=== PATIENT | male | born 1980 | race Caucasian/White ===

== ENCOUNTER → 2017-10-27 09:02 | Outpatient (CLI) | payer OTHER, SELFPAY ==
[2017-10-29 15:27] LABS: Fecal Immunochemical Test NOT DETECTED
== END ==
PROVIDERS: PCP Family Medicine; Visit Provider Family Medicine
DX: Z12.9 Encounter for screening for malignant neoplasm, site unspecified (principal)
CPT/HCPCS: 82274

== ENCOUNTER 2019-04-13 12:15 | Emergency (ER) | payer OTHER, SELFPAY ==
[2019-04-13 12:38] VITALS: BP 143/76; PULSE 73; RESP 15; TEMP 35.9; O2SAT 100; BMI 30.1
--- NOTE | 2019-04-13 13:05 | ED.BACK ---
HPI - Back Pain/Injury <LAURIE Murillo - Last Filed: 04/13/19 22:12> General Chief Complaint: Back Pain/Injury Stated Complaint: back pain going down his legs Time Seen by Provider: 04/13/19 12:49 Source: patient Limitations: no limitations History of Present Illness HPI Narrative: 38yo male presents to the emergency department complaining of right-sided back pain that radiates down to his knee. He states this initially started in January after coughing from a URI, he also reports twisting his ankle and falling forward during the same timeframe. He did not experience any immediate back pain but states the pain gradually developed and has increased over the past few weeks and is radiating past his knee. Patient states pain is worse when he raises his right leg, changes from the sitting to standing or standing to sitting position. Patient states he has been taking a muscle relaxer, naproxen, and had his 1st physical therapy appointment 3 days ago. Patient denies any history of back surgeries or injuries but states I have always struggled with low back pain. He denies any chest pain, shortness of breath, limb weakness, numbness or tingling, loss of bowel or bladder control, urinary retention, saddle paresthesias, abdominal pain, dysuria, blood in his urine, vomiting, diarrhea, or other concerns. Patient does report some nausea but states ?my family has had the stomach bug 24 hours ago. Related Data Previous Rx's Medication Instructions Recorded metaxalone 800 mg tablet 800 mg PO TID PRN #90 tab 03/17/19 naproxen 500 mg tablet 500 mg PO BID #60 tab 03/17/19 oxycodone 5 mg tablet 5 mg PO Q8H PRN #10 tab 04/13/19 prednisone 40 mg PO DAILY 5 Days #10 tab 04/13/19 Allergies Allergy/AdvReac Type Severity Reaction Status Date / Time No Known Drug Allergies Allergy Verified 04/13/19 15:23 Review of Systems <LAURIE Murillo - Last Filed: 04/13/19 22:12> Review of Systems Narrative: REVIEW OF SYSTEMS: GENERAL: Denies fever or chills. HENT: No head trauma. EYES: No double vision or vision loss. CARDIOVASCULAR: No chest pain or syncope. RESPIRATORY: No shortness of breath or cough. GASTROINTESTINAL: No nausea, vomiting, diarrhea, or constipation. GENITOURINARY: No flank pain no loss of bowel or bladder control. MUSCULOSKELETAL: Complains of right-sided back pain that radiates down right pain, see HPI. INTEGUMENTARY: No rash, lesions, or pruritus. NEURO: No numbness, tingling. No saddle paresthesias PSYCH: No behavior or mood changes. Patient History <LAURIE Murillo - Last Filed: 04/13/19 22:12> Medical History Lumbago with sciatica, right side (Acute) Family History Father Age: 69 Sleep apnea Adult idiopathic generalized osteoporosis Grandmother Asthma Mother Age: 66 Diabetes mellitus Hypertension Social History Smoking Status: Former smoker Smoking Status: Unknown if ever smoked alcohol intake frequency: holidays/special occasions only Substance Use Type: marijuana Exam <LAURIE Murillo - Last Filed: 04/13/19 22:12> Initial Vital Signs Initial Vital Signs: Vital Signs Temperature 96.7 F L 04/13/19 12:38 Pulse Rate 73 04/13/19 12:38 Respiratory Rate 15 04/13/19 12:38 Blood Pressure 143/76 H 04/13/19 12:38 Pulse Oximetry 100 04/13/19 12:38 PHYSICAL EXAMINATION: GENERAL: Well groomed, alert, and cooperative. Answers questions promptly and appropriately. Vital signs noted. HENT: Normocephalic, atraumatic. EYES: Symmetrical, sclera white, no periorbital swelling. CARDIOVASCULAR: S1 and S2 sounds normal. Regular rate and rhythm, no murmurs, clicks, or bruits. RESPIRATORY: Normal respiratory rate, trachea midline, airway patent. No stridor, nasal flaring or accessory muscle use. Lungs are clear in all jaime. MUSCULOSKELETAL: Tenderness to palpation of right side headache area, some tenderness to paraspinal vertebral muscles (particularly on the right) of lower lumbar spine. Positive straight leg test. Patient walks with a stiff gait due to pain. Equal integration consultant strength, deltoid, and forearm strength bilaterally. Equal quadriceps strength bilaterally. Equal tone and mass bilaterally. No spinal tenderness or deformities. EXTREMITIES: CMS intact. SKIN: Warm, dry, soft, appropriate color for ethnicity. No lesions, rashes, or wounds. NEURO: Alert and Oriented X 3. No sensory deficits. PSYCH: Appropriate affect and mood. <Doyle Burrell MD - Last Filed: 04/14/19 07:43> Initial Vital Signs Initial Vital Signs: Vital Signs Temperature 96.7 F L 04/13/19 12:38 Pulse Rate 73 04/13/19 12:38 Respiratory Rate 15 04/13/19 12:38 Blood Pressure 143/76 H 04/13/19 12:38 Pulse Oximetry 100 04/13/19 12:38 Course <LAURIE Murillo - Last Filed: 04/13/19 22:12> Course Course Narrative: Patient was given a Toradol injection to help with pain, reports decreased pain after administration. Patient was also given ondansetron as he states he feels slightly nauseated but his family has had the stomach bug. Orders Ordered: Discontinued Medications Ketorolac Tromethamine (Toradol) 30 mg IM NOW ONE Stop: 04/13/19 13:05 Last Admin: 04/13/19 13:44 Dose: 30 mg Documented by: GERI Ondansetron HCl (Zofran Odt) 4 mg SL NOW ONE Stop: 04/13/19 13:05 Last Admin: 04/13/19 13:45 Dose: 4 mg Documented by: BTONER Vital Signs Vital signs: Vital Signs - 8 hr 04/13/19 12:38 Temperature 96.7 F L Pulse Rate 73 Respiratory Rate 15 Blood Pressure 143/76 H Pulse Oximetry 100 <Doyle Burrell MD - Last Filed: 04/14/19 07:43> Orders Ordered: Discontinued Medications Ketorolac Tromethamine (Toradol) 30 mg IM NOW ONE Stop: 04/13/19 13:05 Last Admin: 04/13/19 13:44 Dose: 30 mg Documented by: GERI Ondansetron HCl (Zofran Odt) 4 mg SL NOW ONE Stop: 04/13/19 13:05 Last Admin: 04/13/19 13:45 Dose: 4 mg Documented by: BTONER Vital Signs Vital signs: Vital Signs - 8 hr 04/13/19 12:38 Temperature 96.7 F L Pulse Rate 73 Respiratory Rate 15 Blood Pressure 143/76 H Pulse Oximetry 100 [facility] - Back Pain/Injury <LAURIE Murillo - Last Filed: 04/13/19 22:12> Medical Records Attestation: I reviewed the patient's medical records. Lab Data Attestation: I reviewed the patient's lab results. [facility] Narrative Medical decision making narrative: History and examination most likely sciatica due to location of pain, description of pain, positive straight leg test, and lack of neurological symptoms. Patient was given Toradol in the emergency department which helped relieve symptoms. He was given a taper prednisone to help decrease symptoms as well. We discussed how pain often increases physical therapy before decreases. Less concern for cauda equina due to lack of concerning symptoms such as saddle paresthesias, limb weakness, or loss of bowel or bladder control. Patient agreed to plan of care verbalized understanding. Discharge Plan Departure Patient Disposition: Home Clinical Impression: Sciatica Qualifiers: Laterality: right Qualified Code(s): M54.31 - Sciatica, right side Discharge Date/Time: 04/13/19 14:01 Instructions: DI for Sciatica Activity Restrictions/Additional Instructions: Thank you for entrusting me with your care today. As discussed, I suspect your pain is most likely caused by sciatica. The pain can be exacerbated by physical therapy before it gets better. I have given you a regimen of steroids to help decrease the inflammation and pain, this prescription was sent to [facility] in [place]. Please follow up with your primary care provider as scheduled. Return emergency department for any limb weakness, loss of bowel or bladder control, severe headaches, abdominal pain, high fevers, or any new or concerning symptoms. Prescriptions: New prednisone 20 mg tablet 40 mg PO DAILY 5 Days Qty: 10 RF: 0 No Action metaxalone [Skelaxin] 800 mg tablet 800 mg PO TID PRN (Reason: muscle pain) Qty: 90 RF: 0 naproxen 500 mg tablet 500 mg PO BID Qty: 60 RF: 0 oxycodone 5 mg tablet 5 mg PO Q8H PRN (Reason: pain) Qty: 10 RF: 0 Referrals: Kizzy Fraser, [Primary Care Provider] -
[2019-04-13] MEDS: KETOROLAC 60 MG/2 ML VIAL 30 MG IM (13:44)
[2019-04-13] MEDS: ONDANSETRON 4 MG ODT SL (13:45)
[2019-04-13 13:53] VITALS: BP 137/82; PULSE 70; RESP 20; O2SAT 100
== END 2019-04-13 14:01 | disposition home or self-care (01) ==
PROVIDERS: Emergency Provider Nurse Practitioner; Family Provider Family Medicine; PCP Family Medicine
DX: M54.31 Sciatica, right side (principal)
CPT/HCPCS: 96372; 99283; J1885

== ENCOUNTER → 2019-05-17 12:45 | Outpatient (CLI) | payer OTHER, SELFPAY ==
--- NOTE | 2019-05-17 12:47 | DI.MRI.S_ITS ---
PROCEDURE: MR LUMBAR SPINE WO CON INDICATIONS: right sciatica TECHNIQUE: Noncontrast sagittal T1 spin echo and T2 fast echo, sagittal STIR, axial T1 and T2 fast spin echo through the lumbar spine. In cases with scoliosis, additional coronal T2 fast spin echo may be performed. COMPARISON: [facility], , L-SPINE 2-3 VIEWS, 03/24/2017, 9:49. FINDINGS: Image quality: Excellent. Alignment and Curvature: 5 lumbar type vertebral bodies are present by plain film. There is normal bony alignment. Bone Marrow: Marrow is of normal overall signal. No acute vertebral body compression fractures. Minimal reactive signal within the endplates adjacent to the L4 L5 and L5-S1 intervertebral discs. Spinal Cord: Conus medullaris terminates at the lower L1 level. Visualized cord demonstrates normal signal and size. Paraspinous Soft Tissues: No paravertebral masses. L1-L2: Normal appearance. L2-L3: Mild facet and ligament flavum hypertrophy. Mild epidural lipomatosis. Mild canal stenosis. Mild bilateral foraminal stenosis. L3-L4: Mild facet and ligament flavum hypertrophy. Mild epidural lipomatosis. Mild canal stenosis. Mild bilateral foraminal stenosis. L4-L5: Moderate disc desiccation. Mild diffuse disc bulge with superimposed small broad-based central protrusion. Mild facet and ligament flavum hypertrophy. Mild canal stenosis. Mild bilateral foraminal stenosis. L5-S1: Moderate disc height loss and desiccation. Mild diffuse disc bulge with superimposed right paracentral disc protrusion. Mild bilateral facet hypertrophy. Mild canal stenosis. Moderate subarticular foraminal stenosis bilaterally. Compression and posterior deviation of the right S1 nerve root within the lateral recess. IMPRESSION: 1. Multilevel degenerative disc and facet disease, as well as ligamentum flavum hypertrophy and epidural lipomatosis. 2. Mild multilevel canal stenoses. Multilevel foraminal stenoses, worst at L5-S1 bilaterally where there are moderate foraminal stenoses present. 3. Compression and posterior deviation of the right S1 nerve root at the L5-S1 disc space level. Recommend correlation with clinical symptoms to ascertain relevance of this finding. Dictated by: Gadiel Aleman M.D. on 05/17/2019 at 13:32 Approved by: Gadiel Aleman M.D. on 05/17/2019 at 13:35
== END ==
PROVIDERS: Family Provider Family Medicine; PCP Internal Medicine; Referring Provider Internal Medicine; Visit Provider Internal Medicine
DX: M51.16 Intervertebral disc disorders with radiculopathy, lumbar region (principal); M51.17 Intervertebral disc disorders with radiculopathy, lumbosacral region; M48.061 Spinal stenosis, lumbar region without neurogenic claudication; M48.07 Spinal stenosis, lumbosacral region; E88.2 Lipomatosis, not elsewhere classified; G89.29 Other chronic pain
CPT/HCPCS: 72148

== ENCOUNTER → 2019-12-27 07:26 | Outpatient (CLI) | payer OTHER, SELFPAY ==
[2019-12-27 08:13] LABS: Alanine Aminotransferase 40 IU/L (<50); Albumin 4.2 g/dL (3.5-5.0); Albumin Globulin Ratio 1.7 (1.0-2.8); Alkaline Phosphatase 119 U/L (38-126); Aspartate Aminotransferase 35 IU/L (17-59); BUN Creatinine Ratio 18.7 (6-22); Bilirubin Total 0.9 mg/dL (0.2-1.3); Blood Urea Nitrogen 20 mg/dL (9-20); Calcium 9.8 mg/dL (8.4-10.2); Carbon Dioxide 31 mmol/L (22-32); Chloride 104 mmol/L (98-107); Cholesterol 183 mg/dL (140-199); Estimated Glomerular Filt Rate > 60.0 mL/min (>60); Globulin 2.5 g/dL (1.7-4.1); Glucose 94 mg/dL (70-100); HDL Cholesterol 49 mg/dL (40-60); HEMOLYSIS < 15 (0-50); LDL Cholesterol Calculated 72 mg/dL (<100); Potassium 4.3 mmol/L (3.4-5.1); Sodium 138 mmol/L (137-145); Total Protein 6.7 g/dL (6.3-8.2); Triglycerides 309 mg/dL (35-150)
== END ==
PROVIDERS: Family Provider Family Medicine; PCP Internal Medicine; Referring Provider Internal Medicine; Visit Provider Internal Medicine
DX: D86.0 Sarcoidosis of lung (principal); I10 Essential (primary) hypertension
CPT/HCPCS: 36415; 80053; 80061

== ENCOUNTER → 2020-07-11 08:45 | Outpatient (CLI) | payer OTHER, SELFPAY ==
[2020-07-11] MEDS: COVID-19 VACC #1, MRNA(MOD) 100 MCG/0.5 ML VIAL IM (08:53)
== END ==
PROVIDERS: Family Provider Family Medicine; PCP Internal Medicine; Visit Provider Internal Medicine
DX: Z23 Encounter for immunization (principal)
CPT/HCPCS: 0011A; 91301

== ENCOUNTER → 2020-08-09 09:34 | Outpatient (CLI) | payer OTHER, SELFPAY ==
[2020-08-09] MEDS: COVID-19 VACC #2, MRNA(MOD) 100 MCG/0.5 ML VIAL IM (09:40)
== END ==
PROVIDERS: Family Provider Family Medicine; PCP Internal Medicine; Visit Provider Internal Medicine
DX: Z23 Encounter for immunization (principal)
CPT/HCPCS: 0012A; 91301

== ENCOUNTER 2023-05-22 16:30 | Emergency (ER) | payer OTHER, SELFPAY ==
[2023-05-22] VITALS (19 sets, daily range): BP systolic 147–184; BP diastolic 87–110; PULSE 76–97; RESP 7–22; TEMP 37.2; O2SAT 97–100; BMI 28.7
--- NOTE | 2023-05-22 16:50 | ED_ITS ---
HPI - Abdominal Pain <Vera Quintanilla MD - Last Filed: 05/23/23 07:49> General Chief Complaint: Abdominal Pain Stated Complaint: vomiting, abd pain, Time Seen by Provider: 05/22/23 16:41 Source: patient Mode of arrival: Ambulatory History of Present Illness HPI narrative: 42-year-old male with history of acid reflux presents with 4 days of midepigastric pain with nausea and vomiting. Patient states he is unable to keep anything down. Patient states that he thought that he was getting better yesterday, but overnight he got much worse and vomited multiple times before presentation. He states that something similar happened 6-8 years ago. He ended up getting an endoscopy, which showed that he had irritation in his esophagus, but no other acute abnormalities. Patient denies alcohol or marijuana use. Related Data Home Medications Medication Instructions Recorded Confirmed melatonin 3 mg capsule 6 mg PO BEDTIME 04/28/19 05/01/21 omeprazole 20 mg tablet,delayed 20 mg PO DAILY 05/16/19 05/01/21 release diphenhydramine 25 2 tab PO BEDTIME 01/02/20 05/01/21 mg-acetaminophen 500 mg tablet (Tylenol PM Extra Strength) Previous Rx's Medication Instructions Recorded naproxen 500 mg tablet 500 mg PO BID #60 tabs 03/17/19 cyclobenzaprine 10 mg tablet 10 mg PO BEDTIME #30 tabs 05/01/21 dexamethasone 2 mg tablet 2 mg PO Q6H #16 tabs 05/01/21 tramadol 100 mg tablet 50 - 100 mg (0.5 - 1 x 100 mg) PO 05/14/21 Q6H PRN pain #20 tabs metoclopramide HCl 10 mg tablet 10 mg PO Q6H PRN nausea and 05/22/23 (Reglan) vomiting #20 tabs Allergies Allergy/AdvReac Type Severity Reaction Status Date / Time No Known Drug Allergies Allergy Verified 05/22/23 16:33 Review of Systems <Vera Quintanlila MD - Last Filed: 05/23/23 07:49> Review of Systems Narrative: Negative except as noted above Patient History <Vera Quintanilla MD - Last Filed: 05/23/23 07:49> Medical History Lumbago with sciatica, right side Chronic right-sided low back pain with right-sided sciatica (05/20/16) Hypertension (09/11/14) Pulmonary sarcoidosis (09/11/14) Family History Father Age: 73 Sleep apnea Adult idiopathic generalized osteoporosis Grandmother Asthma Mother Age: 70 Diabetes mellitus Hypertension Social History Smoking Status: Former smoker Smoking Status: Former smoker alcohol intake frequency: holidays/special occasions only Substance Use Type: does not use Exam <Vera Quintanilla MD - Last Filed: 05/23/23 07:49> Initial Vital Signs Initial Vital Signs: Vital Signs Temperature 98.9 F 05/22/23 16:33 Pulse Rate 97 H 05/22/23 16:33 Respiratory Rate 18 05/22/23 16:33 Blood Pressure 147/110 H 05/22/23 16:33 Pulse Oximetry 100 05/22/23 16:33 Oxygen Delivery Method Room Air 05/22/23 16:33 Const: Awake, alert, uncomfortable, nontoxic appearing Cardiac: regular rate, regular rhythm RESP: unlabored, clear bilaterally, no wheezing GI: Soft, midepigastric tenderness to deep palpation without rebound or guarding MSK: Atraumatic, full range of motion, pulses equal Skin: Warm, Dry, intact, no rashes Neuro: AO x3, CN II-XII grossly intact, moves all extremities <Ashwini Hendrix DO - Last Filed: 05/23/23 00:32> Initial Vital Signs Initial Vital Signs: Vital Signs Temperature 98.9 F 05/22/23 16:33 Pulse Rate 97 H 05/22/23 16:33 Respiratory Rate 18 05/22/23 16:33 Blood Pressure 147/110 H 05/22/23 16:33 Pulse Oximetry 100 05/22/23 16:33 Oxygen Delivery Method Room Air 05/22/23 16:33 Course <Vera Quintanilla MD - Last Filed: 05/23/23 07:49> Orders Ordered: Discontinued Medications Hydrocodone Bitart/Acetaminophen (Hydrocodone/Acet 5/325 Prepack) 1 bottle MISC DIRECTED ONE Stop: 05/22/23 20:08 Last Admin: 05/22/23 20:20 Dose: 1 bottle Documented By: KAT Sodium Chloride (Normal Saline 0.9%) 1,000 mls @ 1,000 mls/hr IV BOLUS ONE Stop: 05/22/23 17:48 Last Infusion: 05/22/23 18:36 Dose: Infused Documented By: Admin: 05/22/23 17:01 Dose: 1,000 mls/hr Documented By: AKASH Ketorolac Tromethamine (Ketorolac 30 Mg/Ml Vial) 15 mg IV NOW ONE Stop: 05/22/23 16:50 Last Admin: 05/22/23 17:01 Dose: 15 mg Documented By: AKASH Metoclopramide HCl (Metoclopramide Hcl 5 Mg Tablet) 10 mg PO NOW ONE Stop: 05/22/23 20:08 Last Admin: 05/22/23 20:20 Dose: 10 mg Documented By: KAT Morphine Sulfate (Morphine 4 Mg/Ml Inj) 4 mg IV NOW ONE Stop: 05/22/23 17:40 Last Admin: 05/22/23 17:42 Dose: 4 mg Documented By: Ondansetron HCl (Ondansetron 4 Mg/2 Ml Inj) 4 mg IV NOW PRN PRN Reason: Nausea And Vomiting Last Admin: 05/22/23 17:01 Dose: 4 mg Documented By: AKASH Ondansetron HCl (Ondansetron 4 Mg Odt) 4 mg PO NOW PRN PRN Reason: Nausea And Vomiting Vital Signs Vital signs: Vital Signs - 8 hr 05/22/23 16:33 05/22/23 16:49 05/22/23 16:51 Temperature 98.9 F Pulse Rate 97 H 94 H 94 H Respiratory Rate 18 22 13 Blood Pressure 147/110 H Pulse Oximetry 100 99 Oxygen Delivery Method Room Air 05/22/23 16:51 05/22/23 17:00 05/22/23 17:00 Temperature Pulse Rate 88 Respiratory Rate 12 Blood Pressure 184/102 H 181/87 H Pulse Oximetry 99 Oxygen Delivery Method 05/22/23 17:24 05/22/23 17:25 05/22/23 17:25 Temperature Pulse Rate 78 78 Respiratory Rate 20 10 L Blood Pressure 183/94 H Pulse Oximetry 99 99 Oxygen Delivery Method 05/22/23 17:30 05/22/23 17:30 05/22/23 17:45 Temperature Pulse Rate 80 84 Respiratory Rate 16 21 Blood Pressure 181/96 H Pulse Oximetry 99 100 Oxygen Delivery Method 05/22/23 18:00 05/22/23 18:15 05/22/23 18:30 Temperature Pulse Rate 88 92 H 76 Respiratory Rate 12 14 7 L Blood Pressure Pulse Oximetry 99 99 99 Oxygen Delivery Method 05/22/23 18:45 05/22/23 19:00 05/22/23 19:15 Temperature Pulse Rate 94 H 86 87 Respiratory Rate 15 20 19 Blood Pressure Pulse Oximetry 100 99 99 Oxygen Delivery Method 05/22/23 19:27 05/22/23 19:27 05/22/23 19:30 Temperature Pulse Rate 82 82 Respiratory Rate 16 16 Blood Pressure 167/98 H Pulse Oximetry 99 97 Oxygen Delivery Method 05/22/23 19:30 05/22/23 19:45 05/22/23 20:00 Temperature Pulse Rate 86 82 Respiratory Rate 13 13 Blood Pressure 157/89 H Pulse Oximetry 98 98 Oxygen Delivery Method 05/22/23 20:00 05/22/23 20:04 05/22/23 20:04 Temperature Pulse Rate 81 Respiratory Rate 14 Blood Pressure 160/97 H 163/93 H Pulse Oximetry 98 Oxygen Delivery Method <Ashwini Hendrix, - Last Filed: 05/23/23 00:32> Orders Ordered: Discontinued Medications Hydrocodone Bitart/Acetaminophen (Hydrocodone/Acet 5/325 Prepack) 1 bottle MISC DIRECTED ONE Stop: 05/22/23 20:08 Last Admin: 05/22/23 20:20 Dose: 1 bottle Documented By: KAT Sodium Chloride (Normal Saline 0.9%) 1,000 mls @ 1,000 mls/hr IV BOLUS ONE Stop: 05/22/23 17:48 Last Infusion: 05/22/23 18:36 Dose: Infused Documented By: Admin: 05/22/23 17:01 Dose: 1,000 mls/hr Documented By: AKASH Ketorolac Tromethamine (Ketorolac 30 Mg/Ml Vial) 15 mg IV NOW ONE Stop: 05/22/23 16:50 Last Admin: 05/22/23 17:01 Dose: 15 mg Documented By: AKASH Metoclopramide HCl (Metoclopramide Hcl 5 Mg Tablet) 10 mg PO NOW ONE Stop: 05/22/23 20:08 Last Admin: 05/22/23 20:20 Dose: 10 mg Documented By: KAT Morphine Sulfate (Morphine 4 Mg/Ml Inj) 4 mg IV NOW ONE Stop: 05/22/23 17:40 Last Admin: 05/22/23 17:42 Dose: 4 mg Documented By: Ondansetron HCl (Ondansetron 4 Mg/2 Ml Inj) 4 mg IV NOW PRN PRN Reason: Nausea And Vomiting Last Admin: 05/22/23 17:01 Dose: 4 mg Documented By: AKASH Ondansetron HCl (Ondansetron 4 Mg Odt) 4 mg PO NOW PRN PRN Reason: Nausea And Vomiting Vital Signs Vital signs: Vital Signs - 8 hr 05/22/23 16:33 05/22/23 16:49 05/22/23 16:51 Temperature 98.9 F Pulse Rate 97 H 94 H 94 H Respiratory Rate 18 22 13 Blood Pressure 147/110 H Pulse Oximetry 100 99 Oxygen Delivery Method Room Air 05/22/23 16:51 05/22/23 17:00 05/22/23 17:00 Temperature Pulse Rate 88 Respiratory Rate 12 Blood Pressure 184/102 H 181/87 H Pulse Oximetry 99 Oxygen Delivery Method 05/22/23 17:24 05/22/23 17:25 05/22/23 17:25 Temperature Pulse Rate 78 78 Respiratory Rate 20 10 L Blood Pressure 183/94 H Pulse Oximetry 99 99 Oxygen Delivery Method 05/22/23 17:30 05/22/23 17:30 05/22/23 17:45 Temperature Pulse Rate 80 84 Respiratory Rate 16 21 Blood Pressure 181/96 H Pulse Oximetry 99 100 Oxygen Delivery Method 05/22/23 18:00 05/22/23 18:15 05/22/23 18:30 Temperature Pulse Rate 88 92 H 76 Respiratory Rate 12 14 7 L Blood Pressure Pulse Oximetry 99 99 99 Oxygen Delivery Method 05/22/23 18:45 05/22/23 19:00 05/22/23 19:15 Temperature Pulse Rate 94 H 86 87 Respiratory Rate 15 20 19 Blood Pressure Pulse Oximetry 100 99 99 Oxygen Delivery Method 05/22/23 19:27 05/22/23 19:27 05/22/23 19:30 Temperature Pulse Rate 82 82 Respiratory Rate 16 16 Blood Pressure 167/98 H Pulse Oximetry 99 97 Oxygen Delivery Method 05/22/23 19:30 05/22/23 19:45 05/22/23 20:00 Temperature Pulse Rate 86 82 Respiratory Rate 13 13 Blood Pressure 157/89 H Pulse Oximetry 98 98 Oxygen Delivery Method 05/22/23 20:00 05/22/23 20:04 05/22/23 20:04 Temperature Pulse Rate 81 Respiratory Rate 14 Blood Pressure 160/97 H 163/93 H Pulse Oximetry 98 Oxygen Delivery Method MDM - Abdominal Pain <Vera Quintanilla MD - Last Filed: 05/23/23 07:49> Lab Data 05/22/23 16:43 05/22/23 16:43 Labs: Lab Results 05/22/23 Range/Units 16:43 WBC 11.2 H (4.5-11.0) X10^3/uL RBC 5.73 (4.5-5.9) X10^6/uL Hgb 17.2 (13.5-17.5) g/dL Hct 49.7 (41-53) % MCV 86.7 (80-100) fL MCH 30.1 (26-34) PG MCHC 34.7 (30-36) % RDW 13.0 (11.6-14.8) % Plt Count 332 (150-400) X10^3/uL Neut % (Auto) 74.1 (50-75) % Lymph % (Auto) 19.9 L (25-40) % [place] % (Auto) 5.8 (3-14) % Eos % (Auto) 0.0 L (2-4) % Baso % (Auto) 0.2 (0-2) % Neut # (Auto) 8300 H (6317-6326) /uL Lymph # (Auto) 2200 (5493-3454) /uL [place] # (Auto) 600 (0-900) /uL Eos # (Auto) 0 (0-450) /uL Baso # (Auto) 0 (0-100) /uL Sodium 138 (137-145) mmol/L Potassium 3.6 (3.4-5.1) mmol/L Chloride 102 (98-107) mmol/L Carbon Dioxide 24 (22-32) mmol/L BUN 13 (9-20) mg/dL Creatinine 0.96 (0.66-1.25) mg/dL Estimated GFR > 60 (>60) mL/min BUN/Creatinine Ratio 13.5 (6-22) Glucose 112 H (70-100) mg/dL Calcium 10.1 (8.4-10.2) mg/dL Magnesium 1.7 (1.6-2.3) mg/dL Total Bilirubin 2.9 H (0.2-1.3) mg/dL AST 36 (17-59) IU/L ALT 39 (<50) IU/L Alkaline Phosphatase 81 (38-126) U/L Total Protein 8.2 (6.3-8.2) g/dL Albumin 4.9 (3.5-5.0) g/dL Globulin 3.3 (1.7-4.1) g/dL Albumin/Globulin Ratio 1.5 (1.0-2.8) Lipase 59 (23-300) U/L Point of care testing: Urine Dip Bedside Urine Glucose Negative Bedside Urine Bilirubin - Negative Bedside Urine Ketone - Negative Urine Specific [place] 1.010 Bedside Urine Occult Blood - Negative Bedside Urine pH 7.0 Bedside Urine Protein - Negative Bedside Urine Urobilinogen - Negative Bedside Urine Nitrite - Negative Bedside Urine Leukocytes - Negative Esterase MDM Narrative Medical decision making narrative: Uncomfortable but nontoxic appearing patient with 4 days of symptoms. Abdomen is soft but he does have significant midepigastric tenderness to palpation. Due to the duration and reported severity of patient's symptoms labs, CT imaging ordered. Zofran was ordered in triage, however EKG noted to have prolonged QT and additional Zofran advised against. IV fluids and Toradol ordered for pain. Preliminary laboratory work reviewed, so far only abnormality is a total bilirubin of 2.9, no recent priors for comparison, last value 0.[address] Care of patient is signed out to Dr. Hendrix at 6:[address] Hendrix-patient signed out to me by Dr. Quintanilla I have seen evaluated patient myself. He overall is much better. He has had some intermittent nausea vomiting for last couple of days with pretty severe epigastric pain. . He initially had a very long QTC 661 prior to Zofran. It did resolve his on his repeat EKG. Unclear cause of this. Blood work is overall reassuring but does have an elevated bilirubin of 2.9. Normal liver enzymes Imaging has been reviewed CT and ultrasound do not show any gross abnormality or evidence of cholelithiasis or cholecystitis. Will give patient Lynsey to go home with due to prolonged QTC recommend that he follow-up with his primary care in regards to this. We will also give him some pain medicine. I suspect a viral illness at this time. <Ashwini Hendrix, DO - Last Filed: 05/23/23 00:32> Lab Data Labs: Lab Results 05/22/23 Range/Units 16:43 WBC 11.2 H (4.5-11.0) X10^3/uL RBC 5.73 (4.5-5.9) X10^6/uL Hgb 17.2 (13.5-17.5) g/dL Hct 49.7 (41-53) % MCV 86.7 (80-100) fL MCH 30.1 (26-34) PG MCHC 34.7 (30-36) % RDW 13.0 (11.6-14.8) % Plt Count 332 (150-400) X10^3/uL Neut % (Auto) 74.1 (50-75) % Lymph % (Auto) 19.9 L (25-40) % [place] % (Auto) 5.8 (3-14) % Eos % (Auto) 0.0 L (2-4) % Baso % (Auto) 0.2 (0-2) % Neut # (Auto) 8300 H (8629-7351) /uL Lymph # (Auto) 2200 (0977-4867) /uL [place] # (Auto) 600 (0-900) /uL Eos # (Auto) 0 (0-450) /uL Baso # (Auto) 0 (0-100) /uL Sodium 138 (137-145) mmol/L Potassium 3.6 (3.4-5.1) mmol/L Chloride 102 (98-107) mmol/L Carbon Dioxide 24 (22-32) mmol/L BUN 13 (9-20) mg/dL Creatinine 0.96 (0.66-1.25) mg/dL Estimated GFR > 60 (>60) mL/min BUN/Creatinine Ratio 13.5 (6-22) Glucose 112 H (70-100) mg/dL Calcium 10.1 (8.4-10.2) mg/dL Magnesium 1.7 (1.6-2.3) mg/dL Total Bilirubin 2.9 H (0.2-1.3) mg/dL AST 36 (17-59) IU/L ALT 39 (<50) IU/L Alkaline Phosphatase 81 (38-126) U/L Total Protein 8.2 (6.3-8.2) g/dL Albumin 4.9 (3.5-5.0) g/dL Globulin 3.3 (1.7-4.1) g/dL Albumin/Globulin Ratio 1.5 (1.0-2.8) Lipase 59 (23-300) U/L Point of care testing: Urine Dip Bedside Urine Glucose Negative Bedside Urine Bilirubin - Negative Bedside Urine Ketone - Negative Urine Specific [place] 1.010 Bedside Urine Occult Blood - Negative Bedside Urine pH 7.0 Bedside Urine Protein - Negative Bedside Urine Urobilinogen - Negative Bedside Urine Nitrite - Negative Bedside Urine Leukocytes - Negative Esterase Imaging Data CT scan - abdomen/pelvis: Radiologist's Impression: PROCEDURE: CT ABDOMEN PELVIS W CON INDICATIONS: MIDEPIGASTRIC ABD PAIN, N/V X4 DAYS TECHNIQUE: After the administration of intravenous contrast, axial sections acquired from the lung bases to the pubic symphysis. Coronal and sagittal reformats were performed. For radiation dose reduction, the following was used: automated exposure control, adjustment of mA and/or kV according to patient size. COMPARISON: None. FINDINGS: Image quality: Diagnostic. Lower Chest: No significant findings. ABDOMEN: Liver: No solid mass. Gallbladder: No radiopaque gallstones or wall thickening. Biliary ducts: No biliary dilation. Pancreas: No ductal dilation. Spleen: Size is within normal limits. Adrenal Glands: No adrenal nodules. Kidneys and Ureters: No hydronephrosis. No solid mass. No complex renal cystic lesion which requires follow up. Stomach and Bowel: Normal colonic caliber, without significant wall thickening. Peritoneum: No abnormal intraperitoneal fluid. No free air. Ventral Wall: No significant ventral hernia. Abdominal Nodes: No retroperitoneal or mesenteric adenopathy by size criteria. Vessels: Aorta and inferior vena cava are normal in size. PELVIS: Pelvic Organs: Unremarkable. Bladder: No bladder wall thickening, accounting for underdistention. Pelvic Nodes: No enlarged lymph nodes. Miscellaneous: No inguinal hernias are seen. Bones: No aggressive osseous abnormality. Left iliac bone island. IMPRESSION: No acute findings of the abdomen or pelvis. Dictated by: David Coronado M.D. on 05/22/2023 at 16:54 US - abdomen: Radiologist's Impression: PROCEDURE: US ABDOMEN LIMITED INDICATIONS: ruq TECHNIQUE: Real-time scanning was performed of the abdominal and retroperitoneal organs, with image documentation. COMPARISON: None. FINDINGS: Liver: Liver is normal in size and homogeneous in echotexture. Gallbladder: No gallstones. No wall thickening. No pericholecystic edema. Negative sonographic Vargas's sign. Biliary ducts: Intrahepatic bile ducts are non-dilated. Extrahepatic bile duct caliber measures 3.8 mm. Normal is 6-7 mm or less in diameter, or 10 mm or less post-cholecystectomy. Pancreas: Visualized portions of the pancreas are sonographically normal. Miscellaneous: No free abdominal fluid. IMPRESSION: Normal right upper quadrant ultrasound. Dictated by: David Coronado M.D. on 05/22/2023 at 17:47 ECG Data Attestation: I personally reviewed and interpreted this ECG as follows: Interpretation: EKG 1. Sinus rhythm rate 95 NH interval 136 QRS [address] changes no priors to compare EKG 2. Sinus rhythm QTC is now 440 no ischemia rate 70 MDM Narrative Medical decision making narrative: Dr. Hendrix-patient signed out to me by Dr. Quintanilla I have seen evaluated patient myself. He overall is much better. He has had some intermittent nausea vomiting for last couple of days with pretty severe epigastric pain. . He initially had a very long QTC 661 prior to Zofran. It did resolve his on his repeat EKG. Unclear cause of this. Blood work is overall reassuring but does have an elevated bilirubin of 2.9. Normal liver enzymes Imaging has been reviewed CT and ultrasound do not show any gross abnormality or evidence of cholelithiasis or cholecystitis. Will give patient Reglan to go home with due to prolonged QTC recommend that he follow-up with his primary care in regards to this. We will also give him some pain medicine. I suspect a viral illness at this time. Discharge Plan Departure Patient Disposition: Home Clinical Impression: Gastroenteritis Instructions: DI for Viral Gastroenteritis -- Adult Activity Restrictions/Additional Instructions: *You have been diagnosed with gastroenteritis *What to do: At this time you do have a long QT syndrome however it did resolve on the 2nd EKG. Please follow-up with your primary care provider about this. Certain medications maybe contraindicated At this time increase fluids as tolerated. This is likely a viral illness. Recommend Gatorade or Gatorade like product *Continue to take medications as directed Reglan 5-10 mg every 6 hours if needed for nausea or vomiting Omeprazole 20 mg once a day for acid like symptoms [place] 1 tablet every 6 hours only if needed for severe pain pre pack given motrin 600mg everyu 6 hours if need *Follow up with your primary care provider in 2-3 days or call [phone] *Return to ER if you should have increasing pain persistent vomiting or any new, worsening or concerning symptoms CONTROLLED SUBSTANCE DISCHARGE (Narcotoic/benzodiazepine/Flexeril/Phenergan) 1. You have been prescribed narcotic medications, it does have acetaminophen/Tylenol/paracetamol in it, DO NOT TAKE MORE THAN 4,00mg in 24 hours of Tylenol. TRAMADOL DOES NOT CONTAIN TYLENOL 2. Please understand that we cannot provide further refills of narcotics, benzodiazepines or controlled substances through the ED and her pain management will need to be through your provider. 3. While on these medications you cannot drive or operate heavy machinery. 4. You cannot sign legal documents or perform any duties such as this. 5. As long as you're taking opiate pain medications he should also be taking a stool softener such as Colace, Dulcolax, MiraLAX or prune juice, to help avoid constipation. Prescriptions: New metoclopramide HCl [Reglan] 10 mg tablet 10 mg PO Q6H PRN (Reason: nausea and vomiting) Qty: 20 0RF No Action tramadol 100 mg tablet 50 - 100 mg PO Q6H PRN (Reason: pain) Qty: 20 0RF naproxen 500 mg tablet 500 mg PO BID Qty: 60 0RF Rx Instructions: take with food twice per day melatonin 3 mg capsule 6 mg PO BEDTIME diphenhydramine-acetaminophen [Tylenol PM Extra Strength] 25-500 mg tablet 2 tab PO BEDTIME omeprazole 20 mg tablet,delayed release (DR/EC) 20 mg PO DAILY dexamethasone 2 mg tablet 2 mg PO Q6H Qty: 16 0RF cyclobenzaprine 10 mg tablet 10 mg PO BEDTIME Qty: 30 3RF Referrals: Doyle Montez MD [Primary Care Provider] - Stand Alone Forms: Patient Portal/API
[2023-05-22 16:56] LABS: Add Manual Diff / Slide Review NO; Basophils Absolute Auto 0 /uL (0-100); Basophils Percent Auto 0.2 % (0-2); Eosinophils Absolute Auto 0 /uL (0-450); Hematocrit 49.7 % (41-53); Hemoglobin 17.2 g/dL (13.5-17.5); Lymphocytes Absolute Auto 2200 /uL (1100-4500); Lymphocytes Percent Auto 19.9 % (25-40); Mean Corpuscular HGB Conc 34.7 % (30-36); Mean Corpuscular Hemoglobin 30.1 PG (26-34); Mean Corpuscular Volume 86.7 fL (80-100); Monocytes Absolute Auto 600 /uL (0-900); Monocytes Percent Auto 5.8 % (3-14); Neutrophils Absolute Auto 8300 /uL (1500-7000); Neutrophils Percent Auto 74.1 % (50-75); Platelet Count 332 X10^3/uL (150-400); Red Blood Cell Count 5.73 X10^6/uL (4.5-5.9); White Blood Cell Count 11.2 X10^3/uL (4.5-11.0)
[2023-05-22] MEDS: SODIUM CHLORIDE 0.9% 1,000 ML 1000 ML IV (17:01)
[2023-05-22] MEDS: ONDANSETRON 4 MG/2 ML INJ IV (17:01)
[2023-05-22] MEDS: KETOROLAC 30 MG/ML VIAL 15 MG IV (17:01)
[2023-05-22 17:03] LABS: Alanine Aminotransferase 39 IU/L (<50); Albumin 4.9 g/dL (3.5-5.0); Albumin Globulin Ratio 1.5 (1.0-2.8); Alkaline Phosphatase 81 U/L (38-126); Aspartate Aminotransferase 36 IU/L (17-59); BUN Creatinine Ratio 13.5 (6-22); Bilirubin Total 2.9 mg/dL (0.2-1.3); Blood Urea Nitrogen 13 mg/dL (9-20); Calcium 10.1 mg/dL (8.4-10.2); Carbon Dioxide 24 mmol/L (22-32); Chloride 102 mmol/L (98-107); Estimated Glomerular Filt Rate > 60 mL/min (>60); Globulin 3.3 g/dL (1.7-4.1); Glucose 112 mg/dL (70-100); HEMOLYSIS < 15 (0-50); Lipase 59 U/L (23-300); Potassium 3.6 mmol/L (3.4-5.1); Sodium 138 mmol/L (137-145); Total Protein 8.2 g/dL (6.3-8.2)
[2023-05-22 17:31] LABS: Magnesium 1.7 mg/dL (1.6-2.3)
[2023-05-22] MEDS: MORPHINE 4 MG/ML INJ IV (17:42)
--- NOTE | 2023-05-22 18:05 | DI.US.S_ITS ---
PROCEDURE: US ABDOMEN LIMITED INDICATIONS: ruq TECHNIQUE: Real-time scanning was performed of the abdominal and retroperitoneal organs, with image documentation. COMPARISON: None. FINDINGS: Liver: Liver is normal in size and homogeneous in echotexture. Gallbladder: No gallstones. No wall thickening. No pericholecystic edema. Negative sonographic Vargas's sign. Biliary ducts: Intrahepatic bile ducts are non-dilated. Extrahepatic bile duct caliber measures 3.8 mm. Normal is 6-7 mm or less in diameter, or 10 mm or less post-cholecystectomy. Pancreas: Visualized portions of the pancreas are sonographically normal. Miscellaneous: No free abdominal fluid. IMPRESSION: Normal right upper quadrant ultrasound. Dictated by: Daivd Coronado M.D. on 05/22/2023 at 17:47 Approved by: David Coronado M.D. on 05/22/2023 at 17:49
[2023-05-22] MEDS: METOCLOPRAMIDE HCL 5 MG TABLET 10 MG PO (20:20)
[2023-05-22] MEDS: HYDROCODONE/ACET 5/325 PREPACK 1 BOTTLE MISC (20:20)
== END 2023-05-22 20:25 | disposition home or self-care (01) ==
PROVIDERS: Emergency Medicine; Emergency Provider Emergency Medicine; Family Provider Family Medicine; PCP Internal Medicine
DX: K52.9 Noninfective gastroenteritis and colitis, unspecified (principal); R11.2 Nausea with vomiting, unspecified; R10.9 Unspecified abdominal pain
CPT/HCPCS: 36415; 74177; 76705; 80053; 81003; 83690; 83735; 85025; 93005; 93010; 96361; 96374; 96375; 99284; J1885; J2270; J2405; Q9967

== ENCOUNTER → 2023-10-07 17:56 | Outpatient (CLI) | payer OTHER, SELFPAY ==
[2023-10-07 19:45] LABS: Influenza A - CEPHEID Flu A NEGATIVE (NEGATIVE); Influenza B - CEPHEID Flu B NEGATIVE (NEGATIVE); Respiratory Syncytial Virus Negative (Negative)
[2023-10-07 19:59] LABS: COVID-19 CEPHEID 4-PLEX PCR Negative (Negative)
== END ==
PROVIDERS: Family Provider Family Medicine; PCP Internal Medicine; Visit Provider Physician Assistant Medical
DX: R05.1 Acute cough (principal)
CPT/HCPCS: 0241U

== ENCOUNTER → 2023-10-07 18:01 | Outpatient (CLI) | payer OTHER, SELFPAY ==
--- NOTE | 2023-10-07 18:02 | DI.RAD.S_ITS ---
PROCEDURE: XR CHEST 2V INDICATIONS: Shortness of breath TECHNIQUE: 2 views of the chest were acquired. COMPARISON: None. FINDINGS: Surgical changes and devices: None. Lungs and pleura: Lungs are clear. No pleural effusions or pneumothorax. Mediastinum: Mediastinal contours are normal. Heart size is normal. Bones and chest wall: No suspicious bony abnormalities. Soft tissues appear unremarkable. IMPRESSION: No acute cardiopulmonary abnormality is seen. Dictated by: Abhijit Swanson M.D. on 10/07/2023 at 18:25 Approved by: Abhijit Swanson M.D. on 10/07/2023 at 18:25
== END ==
PROVIDERS: Family Provider Family Medicine; PCP Internal Medicine; Referring Provider Physician Assistant Medical; Visit Provider Physician Assistant Medical
DX: R06.02 Shortness of breath (principal); R05.1 Acute cough
CPT/HCPCS: 0241U; 71046

== ENCOUNTER → 2024-12-13 15:43 | Outpatient (CLI) | payer OTHER, SELFPAY ==
--- NOTE | 2024-12-13 15:44 | DI.MRI.S_ITS ---
PROCEDURE: MR SHOULDER LT W CON INDICATIONS: left shoulder pain TECHNIQUE: After the administration of 12 mL of dilute intra-articular Gadolinium contrast, oblique coronal T1 and T2 spin echo with fat saturation, oblique sagittal T1 spin echo with and without fat saturation, oblique sagittal T2 fast spin echo with fat saturation, axial T1 spin echo with fat saturation through the shoulder. COMPARISON: None. FINDINGS: Quality: Adequate. Tendons: Rotator cuff tendons: Supraspinatus, infraspinatus, teres minor and subscapularis tendons are intact. Long head of biceps tendon: Intact. No dislocation. Muscles: No disproportionate fatty degeneration of the rotator cuff musculature. Acromioclavicular joint: Moderate degenerative change with pericapsular edema and marrow edema. Glenohumeral joint: Labrum: Posteroinferior inferior labral tearing and attachment. Cartilage: No focal defect. Fluid: Adequate distention of joint by intra-articular injection of gadolinium contrast containing fluid. Alignment: No dislocation. Bursa: Subacromial/subdeltoid bursa: Trace fluid. Subcoracoid bursa: Nondistended. Bones: No fracture. IMPRESSION: Posteroinferior labral tearing. Acromioclavicular arthropathy. Subacromial/subdeltoid bursitis. Dictated by: Ezequiel Breen M.D. on 12/14/2024 at 14:04 Approved by: Ezequiel Breen M.D. on 12/14/2024 at 14:07
--- NOTE | 2024-12-13 15:45 | DI.RAD.S_ITS ---
PROCEDURE: FLUOROSCOPIC GUIDED ARTHROGRAM SHOULDER LEFT INDICATIONS: left shoulder pain COMPARISON: None. TECHNIQUE: The indications, alternatives, benefits, risks, and complications of the procedure were explained to the patient. Written informed consent was obtained and placed in the chart. The shoulder was examined fluoroscopically and a site for needle placement chosen for entry into the glenohumeral joint from an anterior approach. The skin was prepped and draped in a sterile fashion, and 1% lidocaine infiltrated from skin down to joint capsule. A spinal needle was inserted into the left glenohumeral joint, and a small amount of iodinated contrast media injected to confirm intra-articular placement of the needle tip. This was followed by approximately 10 mL dilute solution of a gadolinium containing MR contrast agent. The needle was removed and a dressing was applied. The patient was given postprocedural instructions and sent to the MR suite for MR imaging. FINDINGS: A single fluoroscopic spot image demonstrates intra-articular location of injected iodinated contrast. IMPRESSION: Successful fluoroscopically guided administration of dilute Gadolinium solution into the left glenohumeral joint for MR arthrogram. Dictated by: Martell Jamison M.D. on 12/13/2024 at 21:25 Approved by: Martell Jamison M.D. on 12/13/2024 at 21:26
[2024-12-13] MEDS: LIDOCAINE 1% 20 ML INJ (16:28)
[2024-12-13] MEDS: SODIUM CHLORIDE 0.9 % 20 ML VIAL IV (16:28)
== END ==
PROVIDERS: PCP Internal Medicine; Referring Provider Orthopaedic Surgery; Visit Provider Orthopaedic Surgery
DX: S43.492A Other sprain of left shoulder joint, initial encounter (principal); M19.012 Primary osteoarthritis, left shoulder; M75.52 Bursitis of left shoulder; M75.42 Impingement syndrome of left shoulder; M25.512 Pain in left shoulder
CPT/HCPCS: 23350; 73040; 73222; A9579; Q9967